=== PATIENT | male | born 1980 | race Caucasian/White ===

== ENCOUNTER 2018-03-30 21:40 | Emergency (ER) | payer OTHER ==
[~2018-03-30] VITALS: Ht 182.9 cm; Wt 79.4 kg
[2018-03-30] MEDS ORDERED: FLUO10 PO (21:54)
[2018-03-30] MEDS ORDERED: Prozac20 MG PO (23:26)
== END 2018-03-31 00:26 | disposition home or self-care (01) ==
LOC: ER 21:40
DX: Z76.0 Encounter for issue of repeat prescription (principal); F31.9 Bipolar disorder, unspecified; Z88.0 Allergy status to penicillin; Z79.899 Other long term (current) drug therapy
CPT/HCPCS: 99281